=== PATIENT | male | born 1975 | race Native Hawaiian/Other Pacific Islander ===

== ENCOUNTER 2017-02-09 11:15 | Emergency (ER) | payer BC ==
[~2017-02-09] VITALS: Ht 182.9 cm; Wt 104.3 kg
== END 2017-02-09 12:56 | disposition home or self-care (01) ==
LOC: ED 11:15
DX: M25.531 Pain in right wrist (principal); M54.5 Low back pain; W01.0XXA Fall on same level from slipping, tripping and stumbling without subsequent striking against object, initial encounter; Y92.481 Parking lot as the place of occurrence of the external cause
CPT/HCPCS: 99282